=== PATIENT | male | born 1995 | race African-American/Black ===

== ENCOUNTER 2024-11-17 18:28 | Emergency (ER) | payer SELFPAY ==
[2024-11-17 18:36] VITALS: BP 127/79; PULSE 108; RESP 16; TEMP 36.6; O2SAT 96; BMI 55.2
--- NOTE | 2024-11-17 18:40 | ED_ITS ---
HPI - Male Genitourinary General Chief complaint: Urogenital-Male Stated complaint: STD testing Time Seen by Provider: 11/17/24 19:41 Source: patient, RN notes reviewed and old records reviewed Mode of arrival: ambulatory History of Present Illness ED Provider: Alexa Coppola PA-C [facility] Narrative: 29-year-old male no significant past medical history presenting to ED requesting STI testing as his partner recently tested positive for syphilis this past week. Reports some urinary frequency. Denies other complaints including lesions, bumps, erythema, discharge, dysuria, abdominal pain, flank pain. Patient is sexually active with more than 1 partner. Related Data Previous Rx's ?Medication ?Instructions ?Recorded doxycycline hyclate 100 mg tablet 100 mg PO BID 7 days #14 tabs 11/17/24 Allergies Allergy/AdvReac Type Severity Reaction Status Date / Time No Known Allergies Allergy Verified 11/17/24 18:37 [No Known Allergies*] Review of Systems Review of Systems: Yes all other systems are reviewed and are negative Constitutional: Constitutional: Reports as per [facility] Past Medical History Attestation statement: The following information was validated with the patient. Source: old records reviewed Physical Exam Vital Signs: Vital Signs: Last Vital Signs Temp 97.8 F 11/17/24 18:36 Pulse 108 H 11/17/24 18:36 Resp 16 11/17/24 18:36 BP 127/79 11/17/24 18:36 Pulse Ox 96 11/17/24 18:36 O2 Del Method Room Air 11/17/24 18:36 BMI result Body Mass Index 55.2 Const: General: cooperative, healthy appearing and no acute distress Orientation/consciousness: patient oriented x3 Limitations: no limitations HEENT: Head: Yes normal to inspection and Yes atraumatic Ears: hearing grossly normal bilaterally General nose exam: Normal external nose present Face and sinus: Yes normal facial exam Eyes: General: appearance normal, both eyes and all related structures EOM: EOMs intact bilaterally Neck: Neck: Yes normal visual inspection and Yes no meningeal signs Resp: Effort & Inspection: normal respiratory effort and no respiratory distress Cardio: Rate: regular rate Skin: Rashes: no rashes Wounds: no wounds Neuro: General: patient oriented x3, tone normal and no meningeal signs Cranial nerves: Yes CN's II-XII intact bilaterally Gait exam (Neuro): Normal gait present Extrem: General: Yes normal to inspection Course Course Course Narrative: This is a Rapid Medical Exam performed in triage by Alexa Coppola PA-C. Full HPI, ROS and PE to be performed by primary ED provider. 29yo M presenting to the ED c/o partner tested positive for syphilis. Patient denies sx at present. States he is sexually active with more than 1 person PE: nontoxic appearing Plan: UA, Syphilis testing, HIV, CTNG -UA neg > patient received IM Rocephin, IM penicillin G, and p.o. doxycycline in the ED Results discussed with patient including worrisome signs and symptoms and strict return precautions, and when to return to the emergency department. They verbalized understanding and feel safe for discharge at this time. Medical Decision Making Medical Decision Making [facility] Narrative: 29-year-old male no significant past medical history presenting to ED requesting STI testing as his partner recently tested positive for syphilis this past week. Reports some urinary frequency. On exam vital signs stable, NAD, nontoxic appearing, concern for STI exposure Plan: UA, CT NG, syphilis, HIV testing. Patient agreeable to empiric CT / NG and syphilis treatment in the ED. Recomm ended close tapestry follow-up Please refer to course for remaining clinical decision making, interpretation of labs/imaging results, and discussions with consultants and/or family members. Differential Diagnosis Differential Diagnoses: The differential diagnosis associated with the presentation includes As above Lab Data [facility] Lab Attestation statement: I reviewed the patient's lab results. Labs: Lab Results 11/17/24 Range/Units 19:50 Urine Color Yellow Urine Appearance Clear Urine pH 6.0 (5.0-9.0) Ur Specific [place] >= 1.030 H (1.005-1.025) Urine Protein Trace (Neg-Trace) mg/dL Urine Glucose (UA) Negative (Negative) mg/dL Urine Ketones Trace (Negative) mg/dL Urine Blood Negative (Negative) Urine Nitrite Negative (Negative) Ur Leukocyte Esterase Trace H (Negative) Urine RBC 0-2 (0-2) /HPF Urine WBC 0-5 (0-5) /HPF Ur Squamous Epith Cells 3-5 (0-2) /HPF Urine Bacteria Trace (None Seen) Hyaline Casts 0-2 (0-2) /LPF External Record Review External record reviewed: Inpatient record, Office record, Outpatient record, Prior outpatient labs, Prior outpatient radiology, Primary care record and Outside ED record Tests considered The following testing was considered but not selected: As above Prescription Management I considered prescription management with: Pain Medication, Antiviral and Antibiotic Chronic Conditions Patient?s care impacted by: Other Social Determinants Patient?s care significantly limited by Social Determinants of Health including: Other Social Determinant of Health Discharge Plan Discharge Clinical Impression: Exposure to sexually transmitted disease (STD) Patient Disposition: Home, Self-Care Instructions: Syphilis (ED), Postexposure Prophylaxis (ED) Additional Instructions: you were tested for syphilis, gonorrhea, chlamydia, and HIV. These results are currently pending. You will be contacted with positive results only you were empirically [facility] for gonorr[facility], [facility]lamydia, [facility] Please continue prescribed antibiotic, doxycycline until completion Please REFRAIN FROM ANY SEXUAL CONTACT UNTIL YOU KNOW THE RESULTS OF YOUR STUDIES please inform your partners of any positive results please follow-up with [facility] for further sexual transmitted disease testing Prescriptions: New doxycycline hyclate 100 mg tablet 100 mg PO BID 7 Days Qty: 14 0RF Referrals: [facility] [Provider Group] Cheryl Petit MD [Physician] - Temitope Ortega MD [Primary Care Provider] - Print Language: Japanese
[2024-11-17 20:07] LABS: Appearance Urine Clear; Color Urine Yellow; Glucose Urine UA Negative (Negative); Leukocyte Esterase Urine Trace (Negative); Nitrite Urine Negative (Negative); Specific Gravity - Urine >= 1.030 (1.005-1.025); UMIC TRIGGER UACC YES; Urine Blood Negative (Negative); Urine Ketones Trace mg/dL (Negative); Urine Protein Trace mg/dL (Neg-Trace)
[2024-11-17 20:20] LABS: Bacteria Urine Trace (None Seen); Hyaline Casts Urine 0-2 /LPF (0-2); RBC Urine 0-2 /HPF (0-2); WBC Urine 0-5 /HPF (0-5)
[2024-11-17] MEDS: Doxycycline Monohydrate 100 MG CAPSULE PO (20:26)
[2024-11-17] MEDS: Penicillin G Benzathine 2,400,000 UNIT/4 ML SYRINGE 2400000 UNIT IM (20:27)
[2024-11-17] MEDS: cefTRIAXone sodium 1 GM, Lidocaine HCl 1 % MPF 2.1 ML IM (20:28)
[2024-11-17 21:06] VITALS: BP 133/84; PULSE 89; RESP 16; TEMP 36.8; O2SAT 98
[2024-11-17 21:08] VITALS: BP 133/84; PULSE 89; RESP 16; TEMP 36.8; O2SAT 98
[2024-11-18 16:46] LABS: CT PCR NOT DETECTED (Not Detect.); NG PCR NOT DETECTED (Not Detect.)
[2024-11-20 03:50] LABS: Syphilis Screen Reactive (Nonreactive)
[2024-11-20 04:23] LABS: HIV AB/AG Nonreactive (Nonreactive); HIV Num 1 0.11 S/CO (0.00-0.99)
[2024-11-24 15:16] LABS: RPR Quantitative Reactive 1:128 (Nonreactive); T.Pallidum Particle Agg Test Reactive (Nonreactive)
== END 2024-11-17 21:09 | disposition home or self-care (01) ==
PROVIDERS: Physician Assistant; Emergency Provider Emergency Medicine; PCP Family Medicine
DX: R35.0 Frequency of micturition (principal); Z20.2 Contact with and (suspected) exposure to infections with a predominantly sexual mode of transmission
CPT/HCPCS: 36415; 81001; 81003; 86592; 86780; 87389; 87491; 87591; 96372; 99284; J0561; J0696; J2003